=== PATIENT | female | born 1940 | race Caucasian/White ===

== ENCOUNTER 2019-07-18 15:00 | Emergency (ER) | payer MEDICARE, SELFPAY ==
--- NOTE | ~2019-07-18 | XR_ITS ---
XR ankle LT min 3V 07/18/2019 15:34 Indication: Left ankle pain Procedure: 4 views left ankle Comparison: 07/04/2009 Findings: Moderate lateral soft tissue swelling. Osteopenia. No fracture or traumatic malalignment. T alar dome is normal. No foreign bodies. Impression: 1: No acute bone or joint abnormality. Reviewed, dictated and finalized at location B. OLOGY TECHNICIAN Impression: 1: No acute bone or joint abnormality.
--- NOTE | 2019-07-18 15:06 | ED.GENADULT ---
HPI - General Adult General Chief complaint: Extremity Injury, Lower Stated complaint: Left ankle injury Time Seen by Provider: 07/18/19 15:05 Source: patient Mode of arrival: ambulatory Limitations: no limitations History of Present Illness HPI narrative: 79-year-old female patient presents to the [facility] with complaints of left ankle pain x4 days. Patient states that she injured her ankle on Wednesday. Patient states that her bathroom there is a little step and is uneven and went to go and step down and tripped and heard a pop to the left ankle. Patient states she has been taking Tylenol for her ankle and using some type of topical icy hot to the area. Patient states that she did try wrapping it with an Fareed wrap however she states that actually increased her pain. Patient is diabetic. Patient is ambulatory on the ankle. Related Data Home Medications Medication Instructions Recorded Confirmed apixaban [Eliquis] mg 07/18/19 calcitriol 07/18/19 carbamazepine mg PO 07/18/19 carvedilol 07/18/19 ferrous sulfate 07/18/19 furosemide 07/18/19 glimepiride mg 07/18/19 isosorbide mononitrate mg PO 07/18/19 levothyroxine 07/18/19 linagliptin [Tradjenta] mg 07/18/19 meclizine mg 07/18/19 potassium chloride meq 07/18/19 simvastatin mg 07/18/19 Allergies Allergy/AdvReac Type Severity Reaction Status Date / Time No Known Allergies Allergy Mild Verified 07/04/09 23:29 Review of Systems Review of Systems: Narrative: CONSTITUTIONAL: Denies fever, chills, or sweats. EYES: Denies visual changes, redness, or discharge. ENT: Denies rhinorrhea, congestion, sore throat, or otalgia. CARDIOVASCULAR: Denies chest pain, palpitations, or edema. RESPIRATORY: Denies cough or dyspnea. GASTROINTESTINAL: Denies abdominal pain, nausea, vomiting, or diarrhea. GENITOURINARY: Denies dysuria or hematuria. SKIN: Denies rash or itching. MUSCULOSKELETAL: Denies back pain, joint pain, or myalgia. Positive left ankle pain x4 days NEUROLOGIC: Denies headache, numbness, or weakness. PSYCHIATRIC: Denies anxiety or depression. [facility] Comments At the time of my signature I agree with nursing past medical history, surgical, social, and family history. There is no relevant family history pertinent to the presenting complaint. Exam Narrative: Exam Narrative: GENERAL: Well-appearing, well-nourished, and in no acute distress. HEAD: Normocephalic, atraumatic. EYES: PERRLA and EOMI. ENT: Nares clear, no rhinorrhea or epistaxis. Mucous membranes moist. NECK: Supple. No lymphadenopathy CHEST: Clear to auscultation. No respiratory distress. HEART: Regular rate and rhythm. No murmur heard. Normal peripheral pulses. ABDOMEN: Soft, nontender, nondistended, normal active bowel sounds. EXTREMITIES: Patient is able to bear weight and ambulate but does have pain to left ankle. The L ankle is without obvious asymmetry or deformity when compared to the R ankle. Patient can flex/extend, invert/luis manuel. Patient does have significant swelling, redness and warmth over the lateral malleolus area. body tenderness to palpation over the left lateral malleolus. Anterior talofibular ligament, posterior talofibular ligament, calcaneofibular ligament nontender and without swelling. No tenderness or deformity of the midfoot or over the proximal fifth metatarsal. Good DP and posterior tibial pulses and sensation to light touch normal. Talar tilt test is negative for ligament laxity to valgus or vargus stress. Negative anterior draw. Peroneal nerve is intact with strong eversion and plantar flexion. SKIN: Warm, dry, no rash. NEURO: No focal deficits. Alert and oriented x3. Course Reevaluation(s) Reevaluation #1: Notify patient that the x-ray is negative for any acute fractures today. Discussed with patient that when she fell I think that she most likely possibly sprained her ankle slightly. Discussed with patient that I am concerned because she does have swelling, redness a
[2019-07-18 15:16] VITALS: BP 137/95; PULSE 105; RESP 18; TEMP 37.3; O2SAT 97
== END 2019-07-18 15:55 | disposition home or self-care (01) ==
PROVIDERS: Emergency Provider Nurse Practitioner Family
DX: S93.402A Sprain of unspecified ligament of left ankle, initial encounter (principal); W17.89XA Other fall from one level to another, initial encounter; I25.110 Atherosclerotic heart disease of native coronary artery with unstable angina pectoris; E78.00 Pure hypercholesterolemia, unspecified; I10 Essential (primary) hypertension; I25.2 Old myocardial infarction; E11.9 Type 2 diabetes mellitus without complications; E03.9 Hypothyroidism, unspecified; Z95.810 Presence of automatic (implantable) cardiac defibrillator; I73.9 Peripheral vascular disease, unspecified
CPT/HCPCS: 73610; 99203; G0463